=== PATIENT | female | born 1990 | race African-American/Black ===

== ENCOUNTER 2017-12-07 20:00 | Emergency (ER) | payer OTHER ==
--- NOTE | 2017-12-07 20:59 | ED Physician Documentation ---
PD HPI OPHTHO - Stated complaint Stated Complaint: EYE SWOLLEN - Chief complaint Chief Complaint: Heent - History obtained from History obtained from: Patient - History of Present Illness Timing - onset: How many days ago (3) Timing - duration: Days (3) Timing - details: Gradual onset, Still present (had been swelling mid lower left eyelid, considered it a stye and trying warm towels, [place]pfen. Now is redness and swelling periorbital area lower lid left and repeated meds.) Location: Left Quality / character: Aching Associated symptoms: Redness, Swelling. No: Discharge, Matting, FB sensation, Photophobia, Double vision Contributing factors: No: Recent URI, FB Similar symptoms before: Has not had sx before Recently seen: Not recently seen Review of Systems Constitutional: denies: Fever, Chills, Myalgias Eyes: denies: Loss of vision, Photophobia, Discharge, Irritation PD PAST MEDICAL HISTORY - Past Medical History Past Medical History: No - Past Surgical History Past Surgical History: No - Present Medications Home Medications: Ambulatory Orders Medication Instructions Recorded Confirmed Doxycycline Monohydrate 100 mg PO BID #14 tablet 12/07/17 Etonogestrel [Nexplanon] SUBQ DAILY 12/07/17 Ibuprofen [Motrin] 600 mg PO TID #20 tab 12/07/17 - Allergies Allergies/Adverse Reactions: Allergies Allergy/AdvReac Type Severity Reaction Status Date / Time No Known Drug Allergies Allergy Verified 12/07/17 20:09 - Social History Does the pt smoke?: No Smoking Status: Never smoker Does the pt drink ETOH?: Yes Does the pt have substance abuse?: No - Immunizations Immunizations are current?: Yes - POLST Patient has POLST: No PD ED PE NORMAL - Vitals Vital signs reviewed: Yes - General General: Alert and oriented X 3, No acute distress, Well developed/nourished - HEENT HEENT: Atraumatic, PERRL, EOMI (without pain), Pharynx benign - Neck Neck: Supple, no meningeal sign, No adenopathy - Cardiac Cardiac: RRR, No murmur - Respiratory Respiratory: Clear bilaterally - Derm Derm: Normal color, Warm and dry, No rash - Neuro Neuro: Alert and oriented X 3, No motor deficit, No sensory deficit, Normal speech Results - Vitals Vitals: Oxygen O2 Source Room air PD MEDICAL DECISION MAKING - ED course Complexity details: considered differential (looks like infected stye left lower lid margin with surrounding redness of the skin in lower lid, and anterior cheek. No pain with ROM of the eye. Not suggestive of orbital but only periorbital cellulitis. ), d/w patient Departure - Departure Disposition: 01 Home, Self Care Clinical Impression: Hordeolum externum left lower eyelid, Facial cellulitis Condition: Stable Record reviewed to determine appropriate education?: Yes Instructions: ED Cellulitis Facial, ED Hordeolum Follow-Up: [facility] [Provider Group] Prescriptions: Doxycycline Monohydrate 100 mg PO BID #14 tablet Ibuprofen [Motrin] 600 mg PO TID #20 tab Comments: Warm moist towels to the area periodically to improve blood flow and try to unclog the gland. Use the erythromycin ointment 4 times daily with a small bead to the area of infection. There is infection in the skin as well so take doxycycline oral antibiotic twice daily for the next week until it seems fully cleared. Use ibuprofen 3 times a day if needed for pains. Off work 1-2 days for this. Recheck if not better over the next couple of days. Forms: Activity restrictions Discharge Date/Time: 12/07/17 21:44
[2017-12-07] MEDS ORDERED: IBUPROFEN 600 MG TABLET PO STA (21:14)
[2017-12-07] MEDS ORDERED: ERYTHROMYCIN OPHTH OINT 1 GM TUBE LEFTEYE STA (21:14)
[2017-12-07] MEDS ORDERED: DOXYCYCLINE 100 MG TABLET PO STA (21:14)
[2017-12-07 21:39] VITALS: BP 111/77
== END 2017-12-07 21:44 | disposition home or self-care (01) ==
LOC: EDBD → ED 20:00
DX: H00.015 Hordeolum externum left lower eyelid (principal); L03.213 Periorbital cellulitis
CPT/HCPCS: 99283; A9270; J3490

== ENCOUNTER 2018-12-29 12:51 | Emergency (ER) | payer OTHER ==
--- NOTE | 2018-12-29 13:03 | ED Physician Documentation ---
History of Present Illness - Stated complaint Stated Complaint: VOMITING - Chief complaint Chief Complaint: Abd Pain - History obtained from History obtained from: Patient - Additonal information Additional information: Patient is a 28-year-old female presenting with nausea, vomiting, abdominal pain for about the past 1 day. Patient reports that initially she began to have a migraine headache that led to nausea and vomiting yesterday. Patient now reports that headache is resolved. She denies any vision changes, neck pain, fever, or chills as well. Patient then states she has had repetitive vomiting throughout the night and into today with diffuse abdominal pain, but no changes in urination or stools.Patient also denies concern for , as well as any new vaginal bleeding or discharge. Patient was discussing her symptoms with her and there was a miscommunication in which she thought she was potentially feeling suicidal and somewhat [place] was called to her home. She a damantly denies any self harming behavior, overdose, or suicidality at this time. No other improving or worsening factors noted. Review of Systems Constitutional: denies: Fever GI: reports: Abdominal Pain, Nausea, Vomiting : denies: Dysuria PD PAST MEDICAL HISTORY - Past Medical History Past Medical History: No - Past Surgical History Past Surgical History: No - Present Medications Home Medications: Ambulatory Orders Medication Instructions Recorded Confirmed Etonogestrel [Nexplanon] SUBQ DAILY 12/07/17 - Allergies Allergies/Adverse Reactions: Allergies Allergy/AdvReac Type Severity Reaction Status Date / Time No Known Drug Allergies Allergy Verified 12/29/18 16:24 - Social History Does the pt smoke?: No Smoking Status: Never smoker Does the pt drink ETOH?: Yes Does the pt have substance abuse?: No - Immunizations Immunizations are current?: Yes - POLST Patient has POLST: No PD ED PE NORMAL - Vitals Vital signs reviewed: Yes - General General: Alert and oriented X 3, No acute distress, Well developed/nourished, Other (Painful appearing and holding emesis bag) - HEENT HEENT: Atraumatic, Moist mucous membranes, Pharynx benign - Cardiac Cardiac: RRR, No murmur - Respiratory Respiratory: No respiratory distress, Clear bilaterally - Abdomen Abdomen: Soft, Non distended. No: Non tender (Diffusely tender, worse in periumbilical area, no rebound but guarding present) - Back Back: No CVA TTP - Derm Derm: Normal color, Warm and dry, No rash - Extremities Extremities: No deformity, No tenderness to palpate - Neuro Neuro: Alert and oriented X 3, No motor deficit, No sensory deficit - Psych Psych: Normal mood, Normal affect Results - Vitals Vitals: Vital Signs - 24 hr 12/29/18 12/29/18 12/29/18 12:54 13:00 15:18 Temperature 36.5 C 37.2 C Heart Rate 93 70 98 Respiratory 14 20 20 Rate Blood Pressure 154/138 H 125/91 H 121/76 O2 Saturation 100 98 100 12/29/18 17:00 Temperature Heart Rate 72 Respiratory 16 Rate Blood Pressure 113/73 O2 Saturation 100 Oxygen O2 Source Room air - Labs Labs: Laboratory Tests 12/29/18 12/29/18 12/29/18 13:21 13:21 13:21 WBC 10.6 RBC 4.73 Hgb 14.6 Hct 44.0 MCV 93.0 MCH 30.9 MCHC 33.2 RDW 11.8 L Plt Count 320 MPV 10.0 Neut # (Auto) 8.9 H Lymph # (Auto) 1.0 L [place] # (Auto) 0.8 Eos # (Auto) 0.0 Baso # (Auto) 0.0 Absolute Nucleated RBC 0.00 Nucleated RBC % 0.0 Sodium 141 Potassium 3.9 Chloride 105 Carbon Dioxide 18 L Anion Gap 18.0 H BUN 10 Creatinine 0.9 Estimated GFR (MDRD) 92 Glucose 116 H Calcium 10.1 Total Bilirubin 3.4 H AST 147 H ALT 191 H Alkaline Phosphatase 91 Total Protein 8.5 H Albumin 4.8 Globulin 3.7 Albumin/Globulin Ratio 1.3 Lipase 31 TSH 0.50 Serum HCG, Qual Urine Color Urine Clarity Urine pH Ur Specific [place] Urine Protein Urine Glucose (UA) Urine Ketones Urine Occult Blood Urine Nitrite Urine Bilirubin Urine Urobilinogen Ur Leukocyte Esterase Urine RBC Urine WBC Ur Squamous Epith Cells Urine Bacteria Ur Microscopic Review Urine Culture Comments Urine HCG, Qual Salicylates < 6.0 Urine Opiates Screen Ur Oxycodone Screen Urine Methadone Screen Ur Propoxyphene Screen Acetaminophen 24 Ur Barbiturates Screen Ur Tricyclics Screen Ur Phencyclidine Scrn Ur Amphetamine Screen U Methamphetamines Scrn U Benzodiazepines Scrn Urine Cocaine Screen U Cannabinoids Screen Ethyl Alcohol < 5.0 12/29/18 12/29/1812/29/19 13:21 16:00 16:00 WBC RBC Hgb Hct MCV MCH MCHC RDW Plt Count MPV Neut # (Auto) Lymph # (Auto) [place] # (Auto) Eos # (Auto) Baso # (Auto) Absolute Nucleated RBC Nucleated RBC % Sodium Potassium Chloride Carbon Dioxide Anion Gap BUN Creatinine Estimated GFR (MDRD) Glucose Calcium Total Bilirubin AST ALT Alkaline Phosphatase Total Protein Albumin Globulin Albumin/Globulin Ratio Lipase TSH Serum HCG, Qual NEGATIVE Urine Color YELLOW Urine Clarity CLEAR Urine pH 5.5 Ur Specific [place] 1.025 Urine Protein 100 H Urine Glucose (UA) NEGATIVE Urine Ketones 40 H Urine Occult Blood LARGE H Urine Nitrite NEGATIVE Urine Bilirubin NEGATIVE Urine Urobilinogen 0.2 (NORMAL) Ur Leukocyte Esterase NEGATIVE Urine RBC 0-5 Urine WBC 0-3 Ur Squamous Epith Cells FEW Squamous Urine Bacteria None Seen Ur Microscopic Review INDICATED Urine Culture Comments NOT INDICATED Urine HCG, Qual NEGATIVE Salicylates Urine Opiates Screen NEGATIVE Ur Oxycodone Screen NEGATIVE Urine Methadone Screen NEGATIVE Ur Propoxyphene Screen NEGATIVE Acetaminophen Ur Barbiturates Screen NEGATIVE Ur Tricyclics Screen NEGATIVE Ur Phencyclidine Scrn NEGATIVE Ur Amphetamine Screen POSITIVE H U Methamphetamines Scrn NEGATIVE U Benzodiazepines Scrn NEGATIVE Urine Cocaine Screen NEGATIVE U Cannabinoids Screen NEGATIVE Ethyl Alcohol PD MEDICAL DECISION MAKING - ED course Complexity details: reviewed results, re-evaluated patient, considered differential, d/w patient, d/w family ED course: Patient presenting with nausea, vomiting, abdominal pain. Patient states her symptoms initially began as a migraine yesterday, but the headache resolved. Patient's nausea and vomiting, as well as abdominal pain persisted. Patient does report that she took several Tylenol during the day yesterday for her headache, but feels that she likely did not ingest much as she was vomiting and she otherwise stopped taking Tylenol since her headache dissipated. There was concern about possible suicidality per EMS report, however, patient denies. Patient started on IV fluids, as well as pain and nausea medications. Screening lab work, urinalysis, and further testing obtained. Patient's physical exam was concerning for diffuse abdominal tenderness and guarding. CT abdomen/pelvis also obtained following negative test and kidney function evaluation. Screening lab work relatively unremarkable except for elevation of liver enzymes. Drug testing also returned positive for amphetamines, but patient did report use of Adderall previously, as well as Tylenol level within normal limits, but not undetectable. This is understandable given patient's recent Tylenol intake. Given this finding along with elevation of liver enzymes, do have concern for possible Tylenol toxicity, but patient is not meeting criteria for further intervention for such.Patient's chief arrived to the ED and shared further information including screenshots of text messages shared between the patient and her where she explicitly details of suicide attempts and her suicidality. Discussed this information with the patient, who again denies any suicidal thoughts and states this was a argument between her and her . However, at this time, feel it is most appropriate to have patient evaluated by social work/mental health.She is amenable to this evaluation.Social work evaluation is pending. Patient signed out to Dr. Whaley at approximately 6:45 PM. Disposition per social work and chief. Departure - Departure Clinical Impression: Abdominal pain Qualifiers: Abdominal location: generalized Qualified Code(s): R10.84 - Generalized abdominal pain Vomiting Qualifiers: Vomiting type: unspecified Vomiting Intractability: non-intractable Nausea presence: with nausea Qualified Code(s): R11.2 - Nausea with vomiting, unspecified Condition: Fair Instructions: ED Abdominal Pain Unkn Cause Follow-Up: your,doctor [Other] - Within 3 Days Comments: Please avoid Tylenol. Recommend bland diet, advancing as tolerated. Please follow-up with your primary care physician next 2 to 3 days. Return to ED sooner if experience worsening symptoms or other concerns.
[2018-12-29] MEDS ORDERED: SODIUM CHLORIDE 0.9% 1,000 ML IV ONE (13:10)
[2018-12-29] MEDS ORDERED: ONDANSETRON 4 MG/2 ML VIAL IVP STA (13:10)
[2018-12-29] MEDS ORDERED: HYDROmorphone 1 MG/ML CARPUJECT IVP STA (13:14)
[2018-12-29 13:26] LABS: BASOPHILS % (AUTO) 0.2 %; HGB - HEMOGLOBIN 14.6 g/dL (12.0-16.0); LYMPHOCYTES % (AUTO) 9.1 %; MEAN CORPUSCULAR HEMOGLOBIN 30.9 pg (27.0-31.0); MEAN CORPUSCULAR HGB CONC 33.2 g/dL (32.0-36.0); MONOCYTES # (AUTO) 0.8 10^3/uL (0.0-1.0); MONOCYTES % (AUTO) 7.1 %; NEUTROPHILS # (AUTO) 8.9 10^3/uL (1.5-6.6); NEUTROPHILS % (AUTO) 83.3 %; PLT - PLATELET COUNT 320 10^3/uL (130-450); RED BLOOD COUNT 4.73 10^6/uL (4.20-5.40); RED CELL DISTRIBUTION WIDTH 11.8 % (12.0-15.0); WHITE BLOOD COUNT 10.6 x10^3/uL (4.8-10.8)
[2018-12-29 13:42] LABS: ACETAMINOPHEN 24 ug/mL (10-30); ALBUMIN 4.8 g/dL (3.2-5.5); ALBUMIN/GLOBULIN RATIO 1.3 (1.0-2.2); ALKALINE PHOSPHATASE 91 IU/L (42-121); ALT ALANINE AMINOTRANSFERASE 191 IU/L (10-60); AST ASPARTATE AMINOTRANSFERASE 147 IU/L (10-42); BILIRUBIN,TOTAL 3.4 mg/dL (0.2-1.0); BUN - BLOOD UREA NITROGEN 10 mg/dL (6-20); CALCIUM 10.1 mg/dL (8.5-10.3); CARBON DIOXIDE - CO2 18 mmol/L (21-32); CHLORIDE 105 mmol/L (101-111); CREATININE 0.9 mg/dL (0.4-1.0); GFR - MDRD 92 (>89); GLUCOSE 116 mg/dL (70-100); LIPASE 31 U/L (22-51); SALICYLATE < 6.0 mg/dL; SODIUM 141 mmol/L (135-145); TOTAL PROTEIN 8.5 g/dL (6.7-8.2)
[2018-12-29 14:42] LABS: HCG,QUALITATIVE BLOOD NEGATIVE
[2018-12-29] MEDS ORDERED: IOVERSOL 320 100 ML VIAL IVP ONE ×2 (15:07→15:14)
--- NOTE | 2018-12-29 15:31 | CT Report ---
Reason: Diffuse abdominal pain, guarding, nausea, vomiting Procedure Date: 12/29/2018 Accession Number: [id number] / [id number] Procedure: CT - Abdomen/Pelvis W CPT Code: FULL RESULT: EXAM: CT ABDOMEN AND PELVIS EXAM DATE: 12/29/2018 03:12 PM. CLINICAL HISTORY: Diffuse abdominal pain, guarding, nausea, vomiting. COMPARISONS: None. TECHNIQUE: Routine helical CT imaging was performed through the abdomen and pelvis. IV contrast: 100 mL Optiray 320. Enteric contrast: No. Reconstructions: Coronal and sagittal. In accordance with CT protocol optimization, one or more of the following dose reduction techniques were utilized for this exam: automated exposure control, adjustment of mA and/or KV based on patient size, or use of iterative reconstructive technique. FINDINGS: Lung Bases: Unremarkable. Liver: Normal. No masses. Gallbladder/Bile Ducts: Unremarkable. Spleen: Normal. Pancreas: Normal. Adrenal Glands: Normal. Kidneys: Normal. No masses or hydronephrosis. Peritoneal Cavity/Bowel: No free fluid, free air, or bowel obstruction. Most portions of the appendix are very well visualized and demonstrate no abnormality. There is also no inflammatory change in the region of the cecum. Pelvic Organs: Intrauterine device is noted. Vasculature: No aneurysms or other significant abnormality. Bones: No significant abnormality. Other: None. IMPRESSION: The etiology of the acute abdominal presentation is not delineated. RADIA
[2018-12-29 16:08] LABS: MUDS CUTOFF CONCENTRATIONS CUTOFF CONC BELOW:
[2018-12-29 16:24] LABS: BILIRUBIN,URINE NEGATIVE (NEGATIVE); GLUCOSE, URINE (UA) NEGATIVE (NEGATIVE); KETONES,URINE (UA) 40 mg/dL (NEGATIVE); LEUKOCYTE ESTERASE, URINE NEGATIVE (NEGATIVE); NITRITE,URINE NEGATIVE (NEGATIVE); OCCULT BLOOD,URINE LARGE (NEGATIVE); PH,URINE 5.5 PH (5.0-7.5); PROTEIN,URINE 100 mg/dL (NEGATIVE); UROBILINOGEN,URINE 0.2 (NORMAL) E.U./dL (NORMAL)
[2018-12-29 16:45] LABS: AMPHETAMINE SCREEN,URINE POSITIVE (NEGATIVE); BENZODIAZEPINES SCREEN, URINE NEGATIVE (NEGATIVE); COCAINE SCREEN URINE NEGATIVE (NEGATIVE); METHADONE SCREEN, URINE NEGATIVE (NEGATIVE); METHAMPHETAMINES SCREEN, URINE NEGATIVE (NEGATIVE); OPIATE SCREEN, URINE NEGATIVE (NEGATIVE); OXYCODONE SCREEN, URINE NEGATIVE (NEGATIVE); PROPOXYPHENE SCREEN, URINE NEGATIVE (NEGATIVE); TRICYCLIC ANTIDEPRESSANT,URINE NEGATIVE (NEGATIVE)
[2018-12-29 16:46] LABS: CLARITY,URINE CLEAR (CLEAR); HCG UR QUAL NEGATIVE
[2018-12-29 16:47] LABS: BACTERIA,URINE None Seen /HPF (None Seen); RBC,URINE 0-5 /HPF (0-5); SQUAMOUS EPITHELIAL CELL,UR FEW Squamous (<= Few)
[2018-12-29 19:41] VITALS: BP 110/68
--- NOTE | 2018-12-29 19:44 | ED Physician Documentation ---
ED Addendum - Addendum Addendum: 12/29/18 19:42 Social work talked with the patient and her command and . Consensus was the patient was not acutely suicidal at this time. The patient contracts for safety and is willing to follow-up with counseling in the next couple of days and her command will help facilitate that. She is given the crisis line number to call for counseling if needed. The patient is discharged accompanied by a friend. Disposition discharged home stable Diagnoses reactive depression and adjustment disorder #2 depressed affect #3 abdominal pain of unknown cause
== END 2018-12-29 19:42 | disposition home or self-care (01) ==
LOC: EDUNIT# → ED 12:51
DX: R10.84 Generalized abdominal pain (principal); F43.21 Adjustment disorder with depressed mood; R11.2 Nausea with vomiting, unspecified; R78.4 Finding of other drugs of addictive potential in blood
CPT/HCPCS: 36415; 74177; 80320; 80329; 81001; 81025; 83690; 84703; 96361; 96374; 96375; 99283; 99284; J1170; Q9967; 80053; 80306; 80307; 81003; 84443; 85025; 87086